=== PATIENT | female | born 1980 | race Caucasian/White ===

== ENCOUNTER 2021-05-22 19:32 | Emergency (ER) | payer OTHER ==
[~2021-05-22] VITALS: Ht 162.6 cm; Wt 100.0 kg
[2021-05-22] MEDS ORDERED: PHENAZOPYRIDINE HCL 100MG TABLET PO ONE (22:00)
[2021-05-22 22:33] LABS: CLARITY URINE CLEAR (CLEAR); COLOR URINE YELLOW (YELLOW); KETONES URINE TRACE (NEGATIVE); LEUKOCYTE ESTERASE URINE NEGATIVE (NEGATIVE); NITRITE URINE NEGATIVE (NEGATIVE); OCCULT BLOOD URINE TRACE (NEGATIVE); PROTEIN URINE NEGATIVE (NEGATIVE); UROBILINOGEN URINE 0.2 E.U./dL (0.2-1.0)
[2021-05-22] MEDS ORDERED: DIF15 MT (23:20)
[2021-05-22] MEDS ORDERED: FLUCONAZOLE 100MG TABLET PO SCH (23:30)
[2021-05-22 23:50] VITALS: BP 140/85
[2021-05-23] MEDS ORDERED: FLUCONAZOLE 150MG TABLET PO SCH
[2021-05-23] MEDS ORDERED: FLUCONAZOLE 50MG TABLET PO SCH
[2021-05-23] MEDS ORDERED: NITR-87 MT (15:04)
[2021-05-23] MEDS ORDERED: IBUP-2030 MT (15:04)
[2021-05-23] MEDS ORDERED: METH-773 MT (15:04)
== END 2021-05-22 23:50 | disposition home or self-care (01) ==
LOC: ER 19:32
DX: B37.9 Candidiasis, unspecified (principal)
CPT/HCPCS: 81003; 81025; 87086; 87210; 99283; Z7610

== ENCOUNTER 2021-05-23 13:06 | Emergency (ER) | payer OTHER ==
[~2021-05-23] VITALS: Ht 162.6 cm; Wt 100.0 kg
[~2021-05-23 13:06] MED LIST: DIF15 MT
[2021-05-23] MEDS ORDERED: KETOROLAC 60MG/2ML VIAL IM ONE (14:15)
[2021-05-23 14:53] LABS: CLARITY URINE CLEAR (CLEAR); COLOR URINE DARK YELLOW (YELLOW); KETONES URINE NEGATIVE (NEGATIVE); LEUKOCYTE ESTERASE URINE NEGATIVE (NEGATIVE); NITRITE URINE POSITIVE (NEGATIVE); OCCULT BLOOD URINE TRACE (NEGATIVE); PROTEIN URINE NEGATIVE (NEGATIVE); SPECIFIC GRAVITY URINE 1.029 (1.005-1.030); UROBILINOGEN URINE 0.2 E.U./dL (0.2-1.0)
[2021-05-23] MEDS ORDERED: NITR-87 MT (15:04)
[2021-05-23] MEDS ORDERED: IBUP-2030 MT (15:04)
[2021-05-23] MEDS ORDERED: METH-773 MT (15:04)
[2021-05-23 16:14] VITALS: BP 111/71
== END 2021-05-23 16:15 | disposition home or self-care (01) ==
LOC: ER 13:06
DX: M54.5 Low back pain (principal); N39.0 Urinary tract infection, site not specified; Z90.49 Acquired absence of other specified parts of digestive tract
CPT/HCPCS: 74176; 81003; 81025; 96372; 99284; J1885; Z7610

== ENCOUNTER 2021-06-03 08:57 | Emergency (ER) | payer OTHER ==
[~2021-06-03] VITALS: Ht 160 cm; Wt 100.0 kg
[~2021-06-03 08:57] MED LIST changes: +IBUP-2030 MT; +METH-773 MT; +NITR-87 MT
[2021-06-03] MEDS ORDERED: HYDR-4001 MT (10:18)
[2021-06-03] MEDS ORDERED: DEXAMETHASONE 4MG TABLET PO ONE (10:30)
[2021-06-03 11:12] VITALS: BP 147/85
== END 2021-06-03 11:13 | disposition home or self-care (01) ==
LOC: ER 08:57
DX: M54.5 Low back pain (principal); Z90.49 Acquired absence of other specified parts of digestive tract; Z79.899 Other long term (current) drug therapy
CPT/HCPCS: 99283; J8540

== ENCOUNTER 2023-10-04 07:42 | Emergency (ER) | payer OTHER, MEDICAID ==
[~2023-10-04] VITALS: Ht 162.6 cm; Wt 86.0 kg
[~2023-10-04 07:42] MED LIST changes: +HYDR-4001 MT
[2023-10-04 07:59] VITALS: BP 100/49; PULSE 80; RESP 18; TEMP 98.1; O2SAT 98
== END 2023-10-04 09:41 | disposition home or self-care (01) ==
LOC: ER 09:10
DX: M21.371 Foot drop, right foot (principal); W18.40XA Slipping, tripping and stumbling without falling, unspecified, initial encounter; Y93.01 Activity, walking, marching and hiking; Y92.89 Other specified places as the place of occurrence of the external cause; Y99.8 Other external cause status
CPT/HCPCS: 73660; 99283

== ENCOUNTER 2024-06-21 11:17 | Emergency (ER) | payer OTHER, MEDICAID ==
[~2024-06-21] VITALS: Ht 167.6 cm; Wt 95.0 kg
[2024-06-21 11:32] VITALS: TEMP 98.1; O2SAT 97
[2024-06-21] MEDS ORDERED: HYDR-4001 MT (12:06)
[2024-06-21] MEDS ORDERED: P20 PO (12:06)
[2024-06-21 12:21] VITALS: BP 122/82; PULSE 79; RESP 18; O2SAT 99
== END 2024-06-21 12:23 | disposition home or self-care (01) ==
LOC: ER 11:46
DX: M54.50 Low back pain, unspecified (principal); Z90.49 Acquired absence of other specified parts of digestive tract; Z98.890 Other specified postprocedural states; Z79.52 Long term (current) use of systemic steroids; Z79.899 Other long term (current) drug therapy
CPT/HCPCS: 99283

== ENCOUNTER 2024-06-23 07:50 | Emergency (ER) | payer OTHER, MEDICAID ==
[~2024-06-23] VITALS: Ht 162.6 cm; Wt 77.0 kg
[~2024-06-23 07:50] MED LIST changes: +P20 PO
[2024-06-23 07:58] VITALS: BP 112/57; PULSE 85; RESP 16; TEMP 98; O2SAT 98
[2024-06-23] MEDS ORDERED: METH-653 MT (08:30)
[2024-06-23] MEDS: IBUPROFEN 600MG TABLET PO ONE (08:38)
== END 2024-06-23 09:29 | disposition home or self-care (01) ==
LOC: ER 08:00
DX: M54.50 Low back pain, unspecified (principal); Z79.899 Other long term (current) drug therapy; Z90.49 Acquired absence of other specified parts of digestive tract; Z98.890 Other specified postprocedural states
CPT/HCPCS: 72100; 81025; 99283

== ENCOUNTER 2024-10-15 09:32 | Emergency (ER) | payer OTHER, MEDICAID ==
[~2024-10-15] VITALS: Ht 162.6 cm; Wt 85.0 kg
[~2024-10-15 09:32] MED LIST changes: +METH-653 MT
[2024-10-15 09:46] VITALS: O2SAT 98
[2024-10-15 10:08] LABS: BASOPHILS % 0.6 % (0.0-2.0); EOSINOPHILS % 0.8 % (0.0-5.0); HEMATOCRIT. 37.9 % (36.0-48.0); HEMOGLOBIN. 12.8 g/dL (12.0-16.0); LYMPHOCYTES % 23.8 % (20.0-50.0); MEAN CORPUSCULAR HEMOGLOBIN 30.6 pg (28.0-32.0); MEAN CORPUSCULAR HGB CONC 33.7 g/dL (31.0-37.0); MEAN CORPUSCULAR VOLUME 90.9 fL (81.0-99.0); NEUTROPHILS % 68.8 % (40.0-76.0); PLATELET 314 x1000/uL (130-400); RED BLOOD CELL COUNT 4.17 mill/uL (4.2-5.4); RED CELL DISTRIBUTION WIDTH 13.1 % (11.6-14.6); WHITE BLOOD COUNT 6.7 x1000/uL (4.5-11.0)
[2024-10-15 10:16] LABS: CHLORIDE 106 mEq/L (98-107); POTASSIUM 3.7 mEq/L (3.5-5.1); SODIUM 139 mEq/L (136-145)
[2024-10-15 10:17] LABS: CARBON DIOXIDE 25 mEq/L (21-32)
[2024-10-15 10:22] LABS: GLUCOSE 90 mg/dL (70-105); UREA NITROGEN BLOOD 10 mg/dL (9-23)
[2024-10-15] MEDS: ONDANSETRON HCL 4MG/2ML INJ IV NR (11:16)
[2024-10-15] MEDS: SODIUM CHLORIDE 0.9% 1,000 ML IV ONE (11:16)
[2024-10-15] MEDS: ACETAMINOPHEN 325MG TABLET PO NR (11:17)
[2024-10-15 11:31] LABS: CLARITY URINE CLEAR (CLEAR); COLOR URINE YELLOW (YELLOW); GLUCOSE URINE NEGATIVE (NEGATIVE); KETONES URINE NEGATIVE (NEGATIVE); LEUKOCYTE ESTERASE URINE TRACE (NEGATIVE); NITRITE URINE NEGATIVE (NEGATIVE); OCCULT BLOOD URINE NEGATIVE (NEGATIVE); PROTEIN URINE TRACE (NEGATIVE); SPECIFIC GRAVITY URINE 1.017 (1.005-1.030)
[2024-10-15 12:01] LABS: BACTERIA URINE 1+; RBC URINE 0-2 /hpf (0-2); SQUAMOUS EPITHELIAL CELL URINE 1+ /lpf (RARE/1+); WBC URINE 0-2 /hpf (0-2); YEAST URINE NONE SEEN
[2024-10-15 12:04] LABS: ALANINE AMINOTRANSFERASE 31 IU/L (10-49); ALBUMIN 4.1 g/dL (3.2-4.8); ASPARTATE AMINOTRANSFERASE 34 IU/L (<34); BILIRUBIN DIRECT 0.3 mg/dL (<=3.0); PROTEIN TOTAL 7.1 g/dL (6.0-8.3)
[2024-10-15] MEDS ORDERED: ONDA4TAB50 PO (12:43)
[2024-10-15 12:54] VITALS: BP 127/66; PULSE 77; RESP 18; TEMP 36.8; O2SAT 98
== END 2024-10-15 12:58 | disposition home or self-care (01) ==
LOC: ER 09:32
DX: R11.0 Nausea (principal); T50.905A Adverse effect of unspecified drugs, medicaments and biological substances, initial encounter; I10 Essential (primary) hypertension; Z98.890 Other specified postprocedural states; Z90.49 Acquired absence of other specified parts of digestive tract; Z79.899 Other long term (current) drug therapy; Y92.89 Other specified places as the place of occurrence of the external cause
CPT/HCPCS: 99283; 96374; 96361; 80076; 80048; 81003; 81025; 83690; 85025; 36415; J2405; J7030

== ENCOUNTER 2025-05-28 09:21 | Emergency (ER) | payer OTHER, MEDICAID ==
[~2025-05-28] VITALS: Ht 162.6 cm; Wt 74.0 kg
[2025-05-28 09:26] VITALS: O2SAT 100
[2025-05-28] MEDS ORDERED: HYDR-4001 MT (11:56)
[2025-05-28 12:10] VITALS: BP 116/75; PULSE 65; RESP 14; TEMP 36.7; O2SAT 98
== END 2025-05-28 12:19 | disposition home or self-care (01) ==
LOC: ER 09:21
DX: G89.29 Other chronic pain (principal); M54.89 Other dorsalgia; M54.30 Sciatica, unspecified side; Z79.52 Long term (current) use of systemic steroids; Z90.49 Acquired absence of other specified parts of digestive tract; Z91.81 History of falling; Z79.899 Other long term (current) drug therapy
CPT/HCPCS: 99283

== ENCOUNTER → 2025-05-28 | Emergency (ER) | payer OTHER, MEDICAID ==
[~2025-05-28] MED LIST changes: +ONDA4TAB50 PO
== END | disposition left against medical advice (07) ==
LOC: ER 16:17
DX: Z00.00 Encounter for general adult medical examination without abnormal findings (principal); Z53.21 Procedure and treatment not carried out due to patient leaving prior to being seen by health care provider